=== PATIENT | male | born 1955 | race Caucasian/White ===

== ENCOUNTER 2017-06-20 13:38 | Emergency (ER) | payer BC, MEDICARE ==
[2017-06-20] MEDS ORDERED: Sodium Chloride 0.9% 10 ML Syringe FLUSH PRN (14:08)
[2017-06-20] MEDS ORDERED: Aspirin 81 MG Tab.Chew PO ONE (14:09)
[2017-06-20] MEDS ORDERED: Ondansetron 4 MG/2 ML SDV IV ONE (14:09)
[2017-06-20] MEDS ORDERED: Sodium Chloride 0.9% 1,000 ML IV ONE (14:09)
--- NOTE | 2017-06-20 14:11 | EDM.PDOC ---
ED HPI GENERAL MEDICAL PROBLEM - General Chief Complaint: Chest Pain Stated Complaint: CHEST PAIN Time Seen by Provider: 06/20/17 14:00 Source of Information: Reports: Patient, Family, RN, RN Notes Reviewed History Limitations: Reports: No Limitations - History of Present Illness INITIAL COMMENTS - FREE TEXT/NARRATIVE: Arrives from home by POV with c/o sudden onset of substernal and left upper chest pain with mild shortness of breath, and nausea that began approx. 1 hour ago while pt was shoveling snow. He also states that he feels a little lightheaded, but denies syncope or near syncope. He admits to feeling unusually fatigued this past week. He was seen in clinic this morning for a routine check up for chronic hypertension, and felt fine while at the clinic. Pt states the chest pain radiates to both shoulders and into the neck. He has not taken any aspirin or nitroglycerin today. The triage nurse found pt to have a temperature of 38.7c, BP 160/92, and a heart rate of 108. Onset: Today, Sudden Duration: Constant Location: Reports: Chest Quality: Reports: Ache, Pressure Severity: Severe Improves with: Reports: None Worsens with: Reports: None Context: Reports: Activity Bilateral Upper Chest Pain Score (Numeric/FACES): 9 - Related Data Allergies Allergy/AdvReac Type Severity Reaction Status Date / Time No Known Allergies Allergy Verified 06/20/17 13:56 Home Meds: Home Meds Desvenlafaxine [Pristiq] 200 mg PO DAILY 05/28/14 [History] Cetirizine HCl [Zyrtec] 10 mg PO DAILY PRN 06/20/17 [History] Omeprazole Magnesium [Prilosec Otc] 20 mg PO DAILY 06/20/17 [History] amLODIPine [Norvasc] mg PO DAILY 06/20/17 [History] traZODone 50 mg PO DAILY 06/20/17 [History] Past Medical History Cardiovascular History: Reports: Hypertension Musculoskeletal History: Reports: Other (See Below) Other Musculoskeletal History: chronic pain. chronic fatigue Psychiatric History: Reports: Depression - Past Surgical History HEENT Surgical History: Reports: Other (See Below) Other HEENT Surgeries/Procedures: nasal surgery GI Surgical History: Reports: Appendectomy Musculoskeletal Surgical History: Reports: Other (See Below) Other Musculoskeletal Surgeries/Procedures:: osteotomy, ACL, PCL, carpal tunnel , ulnar nerve release, rib removal Social & Family History - Tobacco Use Smoking Status *Q: Never Smoker - Recreational Drug Use Recreational Drug Use: No - Living Situation & Occupation Living situation: Reports: , with Spouse ED ROS GENERAL - Review of Systems Review Of Systems: ROS reveals no pertinent complaints other than HPI. ED EXAM, GENERAL - Physical Exam Exam: See Below Exam Limited By: No Limitations General Appearance: Alert, WD/WN, No Apparent Distress Eye Exam: Bilateral Eye: Normal Inspection Ears: Normal External Exam, Hearing Grossly Normal Nose: Normal Inspection, Normal Mucosa, No Blood Throat/Mouth: Normal Lips, Normal Teeth, Normal Gums, Normal Oropharynx, Normal Voice, No Airway Compromise, Other (dry oral membranes) Head: Atraumatic, Normocephalic Neck: Normal Inspection, Supple, Non-Tender, Full Range of Motion. No: Lymphadenopathy (L), Lymphadenopathy (R) Respiratory/Chest: No Respiratory Distress, Lungs Clear, Normal Breath Sounds, No Accessory Muscle Use, Chest Non-Tender, Other (occ. mild dry cough) Cardiovascular: Normal Peripheral Pulses, Regular Rate, Rhythm, No Edema, No Gallop, No JVD, No Murmur, No Rub, Tachycardia, Extra Beats (occasional) GI/Abdominal: Normal Bowel Sounds, Soft, Non-Tender, No Distention, No Abnormal Bruit (Male) Exam: Deferred Rectal (Males) Exam: Deferred Back Exam: Normal Inspection, Full Range of Motion. No: CVA Tenderness (L), CVA Tenderness (R) Extremities: Normal Inspection, Normal Range of Motion, Non-Tender, Normal Capillary Refill, No Pedal Edema Neurological: Alert, Oriented, CN II-XII Intact, Normal Cognition, No Motor/ Sensory Deficits Psychiatric: Normal Affect, Normal Mood Skin Exam: Warm, Dry, Intact, Normal Color, No Rash EKG INTERPRETATION EKG Date: 06/20/17 Time: 13:40 Rhythm: Other (Sinus tach) Rate (Beats/Min): 117 [place]: Normal P-Wave: Present QRS: Normal (PVCs) ST-T: Other (Nonspecific T-wave abnormalities in lateral leads) QT: Normal Comparison: NA - No Prior EKG Course - Vital Signs Last Recorded V/S: Last Vital Signs Temp 38.6 C H 06/20/17 14:59 Pulse 104 H 06/20/17 14:44 Resp 14 06/20/17 14:44 BP 145/87 H 06/20/17 14:58 Pulse Ox 96 06/20/17 14:44 - Orders/Labs/Meds Orders: Active Orders 24 hr Category Date Time Status EKG 12 Lead [EKG Documentation Completion] [RC] URGENT Care 06/20/17 13:51 Active Peripheral IV Care [] . DIRECTED Care 06/20/17 14:08 Active CULTURE STREP A CONFIRMATION [] Stat Lab 06/20/17 13:51 Results STREP SCRN A RAPID W CULT CONF [] Stat Lab 06/20/17 13:51 Results Nitroglycerin [Nitrostat] Med 06/20/17 14:53 Active 0.4 mg SL Q5M PRN Sodium Chloride 0.9% [Saline Flush] Med 06/20/17 14:08 Active 10 ml FLUSH ASDIRECTED PRN Peripheral IV Insertion Adult [OM.PC] Stat Oth 06/20/17 14:08 Ordered Medication Orders Nitroglycerin (Nitrostat) 0.4 mg SL Q5M PRN PRN Reason: Chest Pain Last Admin: 06/20/17 14:58 Dose: 0.4 mg Sodium Chloride (Saline Flush) 10 ml FLUSH ASDIRECTED PRN PRN Reason: Keep Vein Open Last Admin: 06/20/17 14:17 Dose: 10 ml Labs: Laboratory Tests 06/20/17 06/20/17 06/20/17 Range/Units 13:50 13:50 13:50 WBC 12.2 H (5.0-10.0) 10^3/uL RBC 5.27 (4.6-6.2) 10^6/uL Hgb 14.7 (14.0-18.0) g/dL Hct 45.9 (40.0-54.0) % MCV 87.1 (80-100) fL MCH 27.9 (27.0-34.0) pg MCHC 32.0 L (33.0-35.0) g/dL Plt Count 163 (150-450) 10^3/uL Neut % (Auto) 56.9 (42.2-75.2) % Lymph % (Auto) 31.4 (20.5-50.1) % [place] % (Auto) 9.1 H (2-8) % Eos % (Auto) 2.3 (1.0-3.0) % Baso % (Auto) 0.3 (0.0-1.0) % Sodium 138 (135-145) mmol/L Potassium 3.4 L (3.6-5.0) mmol/L Chloride 105 (101-111) mmol/L Carbon Dioxide 25.0 (21.0-31.0) mmol/L Anion Gap 11.4 BUN 22 H (7-18) mg/dL Creatinine 1.4 H (0.6-1.3) mg/dL Est Cr Clr Drug Dosing 64.42 mL/min Estimated GFR (MDRD) 52 BUN/Creatinine Ratio 15.71 Glucose 80 (74-105) mg/dL Calcium 9.5 (8.4-10.2) mg/dl Total Bilirubin 0.5 (0.2-1.0) mg/dL AST 47 H (10-42) IU/L ALT 61 H (10-60) IU/L Alkaline Phosphatase 78 (42-121) IU/L Creatine Kinase 396 H (26-174) IU/L Creatine Kinase Index 1.3 (0-2.4) % CK-MB (CK-2) 5.10 H (0.4-4.7) ng/mL Troponin I 0.03 H* (0.00-0.02) ng/ml Total Protein 7.6 (6.7-8.2) g/dl Albumin 4.2 (3.2-5.5) g/dl Globulin 3.4 Albumin/Globulin Ratio 1.24 Meds: Medications Generic Name Dose Route Start Last Admin Trade Name Vincent PRN Reason Stop Dose Admin Nitroglycerin 0.4 mg 06/20/17 14:53 06/20/17 14:58 Nitrostat SL 0.4 mg Q5M PRN Administration Chest Pain Sodium Chloride 10 ml 06/20/17 14:08 06/20/17 14:17 Saline Flush FLUSH 10 ml ASDIRECTED PRN Administration Keep Vein Open Discontinued Medications Generic Name Dose Route Start Last Admin Trade Name Freq PRN Reason Stop Dose Admin Aspirin 324 mg 06/20/17 14:09 06/20/17 14:17 Aspirin PO 06/20/17 14:10 324 mg ONETIME ONE Administration Sodium Chloride 1,000 mls @ 999 mls/hr 06/20/17 14:09 06/20/17 14:16 Normal Saline IV 06/20/17 15:09 999 mls/hr .BOLUS ONE Administration Ondansetron HCl 4 mg 06/20/17 14:09 06/20/17 14:17 Zofran IV 06/20/17 14:10 4 mg ONETIME ONE Administration Oseltamivir Phosphate 75 mg 06/20/17 14:30 06/20/17 14:34 Tamiflu PO 06/20/17 14:31 75 mg ONETIME ONE Administration - Radiology Interpretation Free Text/Narrative:: CXR: no acute process, see Rad. report. Departure - Departure Time of Disposition: 15:30 Disposition: DC/Tfer to [facility] 02 Reason for Transfer *Q: Primary PCI Indicated Condition: Serious Clinical Impression: Acute coronary syndrome, Influenza B Forms: ED Department Discharge, Interfacility Transfer EMTALA - My Orders Last 24 Hours: My Active Orders 06/20/17 13:51 EKG 12 Lead [EKG Documentation Completion] [RC] URGENT CULTURE STREP A CONFIRMATION [RM] Stat STREP SCRN A RAPID W CULT CONF [RM] Stat 06/20/17 14:08 Peripheral IV Care [RC] . DIRECTED Sodium Chloride 0.9% [Saline Flush] 10 ml FLUSH ASDIRECTED PRN Peripheral IV Insertion Adult [OM.PC] Stat 06/20/17 14:53 Nitroglycerin [Nitrostat] 0.4 mg SL Q5M PRN - Assessment/Plan Last 24 Hours: My Active Orders 06/20/17 13:51 EKG 12 Lead [EKG Documentation Completion] [RC] URGENT CULTURE STREP A CONFIRMATION [RM] Stat STREP SCRN A RAPID W CULT CONF [RM] Stat 06/20/17 14:08 Peripheral IV Care [RC] . DIRECTED Sodium Chloride 0.9% [Saline Flush] 10 ml FLUSH ASDIRECTED PRN Peripheral IV Insertion Adult [OM.PC] Stat 06/20/17 14:53 Nitroglycerin [Nitrostat] 0.4 mg SL Q5M PRN
[2017-06-20] MEDS ORDERED: Oseltamivir 75 MG Cap PO ONE (14:30)
--- NOTE | 2017-06-20 14:47 | CR ---
Clinical history: 61-year-old male emergency department with chest pain. Interpretation: Suggestion of some hilar granulomatous nodules. Hypertrophic arthritis dorsal spine. Normal cardiac silhouette without cephalization of flow signs of alveolar edema or dependent pleural fluid accumulation (effusion). No new lung mass, hilar lymphadenopathy or focal lobar pneumonia compared [address] exam[address] (Belen gical clips right axilla) No atelectasis/collapse. No pneumothorax. CONCLUSION: No acute cardiopulmonary abnormality.
[2017-06-20] MEDS ORDERED: Nitroglycerin 0.4 MG Tab.SL SL PRN (14:53)
[2017-06-20 14:58] VITALS: BP 145/87
--- NOTE | 2017-06-22 12:34 | EKG ---
06/20/2017 - ALEM SOTO - FINDINGS: A 12-lead EKG shows normal sinus rhythm with sinus tachycardia. PVCs noted on the 12-lead EKG. No significant ST elevation or ST depression noted. Nonspecific ST-T wave changes noted on the lateral leads. [facility] /[id number]
== END 2017-06-20 16:22 ==
LOC: DL.ED 13:38
DX: I24.9 Acute ischemic heart disease, unspecified (principal); J10.1 Influenza due to other identified influenza virus with other respiratory manifestations; I10 Essential (primary) hypertension; Z79.899 Other long term (current) drug therapy
CPT/HCPCS: 36415; 71045; 80053; 82550; 82553; 84484; 85025; 87081; 87430; 87804; 93005; 96361; 96374; 99285; A9270; J2405; J7030; J7050

== ENCOUNTER 2019-02-18 08:51 | Emergency (ER) | payer MEDICARE, BC ==
--- NOTE | 2019-02-18 09:29 | EDM.PDOC ---
"<Skye Chang - Last Filed: 02/18/19 11:30> ED HPI GENERAL MEDICAL PROBLEM - General Chief Complaint: Neuro Symptoms/Deficits Stated Complaint: LEFT SIDE OF BODY GOING NUMB Time Seen by Provider: 02/18/19 09:00 Source of Information: Reports: Patient, Old Records, RN, RN Notes Reviewed History Limitations: Reports: No Limitations - History of Present Illness INITIAL COMMENTS - FREE TEXT/NARRATIVE: Ja is a 63 year old male presenting with left sided numbness and weakness since around 7am this morning. He had his CPAP on last night and still kept waking up and gasping for air. When symptoms occurred this morning he was not exerting himself. He reports pressure like chest pain, nonradiating, left arm and left leg numbness and weakness, nausea, dizziness, and lightheadedness. Has not had emesis. Denies recent URI or GI symptoms. He was diagnosed with vertigo and has seen PT for head maneuvers which partially helped. Today he has dizziness both when he is still and when moving his head. There is associated SOB. denies slurred speech, facial droop. Denies injury or LOC. Onset: Today - Related Data Allergies Allergy/AdvReac Type Severity Reaction Status Date / Time No Known Allergies Allergy Verified 02/18/19 09:57 Home Meds: Home Meds Desvenlafaxine [Pristiq] 200 mg PO DAILY 05/28/14 [History] Cetirizine HCl [Zyrtec] 10 mg PO BEDTIME 06/20/17 [History] Acetaminophen/Caffeine [Excedrin Tension Headache Cplt] 2 tab PO ASDIRECTED PRN 02/18/19 [History] Albuterol [Proventil HFA] 2 puff INH ASDIRECTED PRN 02/18/19 [History] Ferrous Sulfate 325 mg PO DAILY 02/18/19 [History] Fluticasone Propionate [Flonase] 2 spray NASBOTH BEDTIME 02/18/19 [History] Testosterone Cypionate [Depo-Testosterone] 200 mg IM ASDIRECTED 02/18/19 [ History] Verapamil HCl [Verapamil Sr] 120 mg PO DAILY 02/18/19 [History] Past Medical History Cardiovascular History: Reports: Hypertension Musculoskeletal History: Reports: Other (See Below) Other Musculoskeletal History: chronic pain. chronic fatigue Psychiatric History: Reports: Depression - Past Surgical History HEENT Surgical History: Reports: Other (See Below) Other HEENT Surgeries/Procedures: nasal surgery GI Surgical History: Reports: Appendectomy Musculoskeletal Surgical History: Reports: Other (See Below) Other Musculoskeletal Surgeries/Procedures:: osteotomy, ACL, PCL, carpal tunnel , ulnar nerve release, rib removal Social & Family History - Living Situation & Occupation Living situation: Reports: , with Spouse ED ROS GENERAL - Review of Systems Review Of Systems: See Below Constitutional: Reports: No Symptoms HEENT: Reports: Vertigo Respiratory: Reports: Shortness of Breath Cardiovascular: Reports: Chest Pain Endocrine: Reports: No Symptoms GI/Abdominal: Reports: No Symptoms : Reports: No Symptoms Musculoskeletal: Reports: No Symptoms Skin: Reports: No Symptoms Neurological: Reports: Dizziness, Numbness, Difficulty Walking, Weakness Psychiatric: Reports: No Symptoms Hematologic/Lymphatic: Reports: No Symptoms Immunologic: Reports: No Symptoms ED EXAM, GENERAL - Physical Exam Exam: See Below Exam Limited By: No Limitations General Appearance: Alert, No Apparent Distress Eye Exam: Bilateral Eye: EOMI, PERRL Ears: Normal External Exam Nose: Normal Inspection Throat/Mouth: Normal Inspection, Normal Lips, Normal Oropharynx, Normal Voice, No Airway Compromise Head: Atraumatic, Normocephalic Neck: Other (some neck stiffness on turning left ) Respiratory/Chest: No Respiratory Distress, Lungs Clear, Normal Breath Sounds, No Accessory Muscle Use Cardiovascular: Regular Rate, Rhythm, No Edema GI/Abdominal: Soft, Non-Tender, No Organomegaly, No Distention (Male) Exam: Deferred Rectal (Males) Exam: Deferred Back Exam: Normal Inspection Extremities: No Pedal Edema Neurological: Alert, Oriented, Normal Cognition, Sensory/Motor Deficit (Left arm and leg are weaker than right, and have decreased sensation in comparison to right. ) Skin Exam: Warm, Dry, Normal Color, No Rash Course - Vital Signs Last Recorded V/S: Last Vital Signs Temp 97 F 02/18/19 08:53 Pulse 55 L 02/18/19 08:53 Resp 20 02/18/19 08:53 BP 180/103 H 02/18/19 08:53 Pulse Ox 100 02/18/19 08:53 - Orders/Labs/Meds Orders: Active Orders 24 hr Category Date Time Status EKG 12 Lead [EKG Documentation Completion] [RC] STAT Care 02/18/19 09:05 Active Labs: Laboratory Tests 02/18/19 02/18/19 02/18/19 Range/Units 09:07 09:23 09:23 WBC 13.3 H (5.0-10.0) 10^3/uL RBC 5.17 (4.6-6.2) 10^6/uL Hgb 15.7 (14.0-18.0) g/dL Hct 47.1 (40.0-54.0) % MCV 91.1 D (80-100) fL MCH 30.4 (27.0-34.0) pg MCHC 33.3 (33.0-35.0) g/dL Plt Count 182 (150-450) 10^3/uL Neut % (Auto) 43.2 (42.2-75.2) % Lymph % (Auto) 48.0 (20.5-50.1) % Moody % (Auto) 6.4 (2-8) % Eos % (Auto) 2.2 (1.0-3.0) % Baso % (Auto) 0.2 (0.0-1.0) % Sodium 141 (135-145) mmol/L Potassium 3.6 (3.6-5.0) mmol/L Chloride 107 (101-111) mmol/L Carbon Dioxide 24.0 (21.0-31.0) mmol/L Anion Gap 13.6 BUN 17 (7-18) mg/dL Creatinine 0.7 (0.6-1.3) mg/dL Est Cr Clr Drug Dosing TNP Estimated GFR (MDRD) > 60 BUN/Creatinine Ratio 24.28 Glucose 100 (74-105) mg/dL POC Glucose 116 H (70-105) mg/dl Calcium 9.1 (8.4-10.2) mg/dl Magnesium 1.9 (1.8-2.5) mg/dL Total Bilirubin 0.8 (0.2-1.0) mg/dL AST 38 (10-42) IU/L ALT 53 (10-60) IU/L Alkaline Phosphatase 61 (42-121) IU/L Troponin I < 0.02 (0.00-0.02) ng/ml Total Protein 7.1 (6.7-8.2) g/dl Albumin 4.1 (3.2-5.5) g/dl Globulin 3.0 Albumin/Globulin Ratio 1.37 Urine Color (YELLOW) Urine Appearance (CLEAR) Urine pH (5.0-9.0) Ur Specific [place] (1.005-1.030) Urine Protein (NEGATIVE) Urine Glucose (UA) (NEGATIVE) Urine Ketones (NEGATIVE) Urine Occult Blood (NEGATIVE) Urine Nitrite (NEGATIVE) Urine Bilirubin (NEGATIVE) Urine Urobilinogen (0.2-1.0) mg/dL Ur Leukocyte Esterase (NEGATIVE) Urine RBC /HPF Urine WBC (0-5/HPF) /HPF Ur Epithelial Cells (NOT SEEN) /HPF Urine Bacteria (0-FEW/HPF) /HPF 02/18/19 Range/Units 10:55 WBC (5.0-10.0) 10^3/uL RBC (4.6-6.2) 10^6/uL Hgb (14.0-18.0) g/dL Hct (40.0-54.0) % MCV (80-100) fL MCH (27.0-34.0) pg MCHC (33.0-35.0) g/dL Plt Count (150-450) 10^3/uL Neut % (Auto) (42.2-75.2) % Lymph % (Auto) (20.5-50.1) % Moody % (Auto) (2-8) % Eos % (Auto) (1.0-3.0) % Baso % (Auto) (0.0-1.0) % Sodium (135-145) mmol/L Potassium (3.6-5.0) mmol/L Chloride (101-111) mmol/L Carbon Dioxide (21.0-31.0) mmol/L Anion Gap BUN (7-18) mg/dL Creatinine (0.6-1.3) mg/dL Est Cr Clr Drug Dosing Estimated GFR (MDRD) BUN/Creatinine Ratio Glucose (74-105) mg/dL POC Glucose (70-105) mg/dl Calcium (8.4-10.2) mg/dl Magnesium (1.8-2.5) mg/dL Total Bilirubin (0.2-1.0) mg/dL AST (10-42) IU/L ALT (10-60) IU/L Alkaline Phosphatase (42-121) IU/L Troponin I (0.00-0.02) ng/ml Total Protein (6.7-8.2) g/dl Albumin (3.2-5.5) g/dl Globulin Albumin/Globulin Ratio Urine Color Yellow (YELLOW) Urine Appearance Clear (CLEAR) Urine pH 7.0 (5.0-9.0) Ur Specific [place] 1.015 (1.005-1.030) Urine Protein Negative (NEGATIVE) Urine Glucose (UA) Negative (NEGATIVE) Urine Ketones Negative (NEGATIVE) Urine Occult Blood Trace-intact H (NEGATIVE) Urine Nitrite Negative (NEGATIVE) Urine Bilirubin Negative (NEGATIVE) Urine Urobilinogen 0.2 (0.2-1.0) mg/dL Ur Leukocyte Esterase Negative (NEGATIVE) Urine RBC 0-5 /HPF Urine WBC 0-5 (0-5/HPF) /HPF Ur Epithelial Cells Rare (NOT SEEN) /HPF Urine Bacteria Rare (0-FEW/HPF) /HPF Meds: Medications Discontinued Medications Generic Name Dose Route Start Last Admin Trade Name Freq PRN Reason Stop Dose Admin Aspirin 324 mg 02/18/19 09:49 02/18/19 10:10 Aspirin PO 02/18/19 09:50 324 mg ONETIME ONE Administration Dexamethasone 20 mg 02/18/19 09:56 02/18/19 10:16 Dexamethasone IVPUSH 02/18/19 09:57 20 mg ONETIME ONE Administration Diazepam 5 mg 02/18/19 09:55 02/18/19 10:20 Valium IVPUSH 02/18/19 09:56 5 mg ONETIME ONE Administration Meclizine HCl 25 mg 02/18/19 09:57 02/18/19 10:13 Antivert PO 02/18/19 09:58 25 mg ONETIME ONE Administration - Re-Assessments/Exams Free Text/Narrative Re-Assessment/Exam: 02/18/19 11:[address] Rogel via [facility] call and he accepted the patient. He will be transported by ambulance to [facility]. Patient and his are in agreement. Departure - Departure Time of Disposition: 11:32 Disposition: DC/Tfer to Acute Hospital 02 Condition: Fair, Undetermined Clinical Impression: Vertigo, Numbness, Muscle weakness Chest pain Qualifiers: Chest pain type: unspecified Qualified Code(s): R07.9 - Chest pain, unspecified - Discharge Information Forms: ED Department Discharge, Interfacility Transfer EMTALA - Assessment/Plan Assessment:: Assessment and Plan: Chest pain Left upper and lower extremity weakness and numbness - EKG unremarkable - Troponin pending - Head CT pending - CXR pending - CBC, CMP, Magnesium pending <Airam Brar - Last Filed: 02/18/19 11:41> ED HPI GENERAL MEDICAL PROBLEM - History of Present Illness Duration: Constant Location: Reports: Chest, Upper Extremity, Left, Lower Extremity, Left Quality: Reports: Pressure (chest) Severity: Moderate Improves with: Reports: None Worsens with: Reports: None Associated Symptoms: Reports: No Other Symptoms Past Medical History Cardiovascular History: Reports: CAD Musculoskeletal History: Reports: Fibromyalgia Psychiatric History: Reports: Anxiety, Depression - Past Surgical History Cardiovascular Surgical History: Reports: Other (See Below) (Cardiac Cath. 2017) EKG INTERPRETATION EKG Date: 02/18/19 Time: 09:01 Rhythm: Other (SR) Rate (Beats/Min): 55 [place]: LAD-Left [place] Deviation P-Wave: Present QRS: Normal ST-T: Normal QT: Normal Comparison: No Change Course - Vital Signs Last Recorded V/S: Last Vital Signs Temp 97 F 02/18/19 08:53 Pulse 55 L 02/18/19 08:53 Resp 20 02/18/19 08:53 BP 180/103 H 02/18/19 08:53 Pulse Ox 100 02/18/19 08:53 - Orders/Labs/Meds Meds: Medications Discontinued Medications Generic Name Dose Route Start Last Admin Trade Name Freq PRN Reason Stop Dose Admin Aspirin 324 mg 02/18/19 09:49 02/18/19 10:10 Aspirin PO 02/18/19 09:50 324 mg ONETIME ONE Administration Dexamethasone 20 mg 02/18/19 09:56 02/18/19 10:16 Dexamethasone IVPUSH 02/18/19 09:57 20 mg ONETIME ONE Administration Diazepam 5 mg 02/18/19 09:55 02/18/19 10:20 Valium IVPUSH 02/18/19 09:56 5 mg ONETIME ONE Administration Meclizine HCl 25 mg 02/18/19 09:57 02/18/19 10:13 Antivert PO 02/18/19 09:58 25 mg ONETIME ONE Administration - Radiology Interpretation Free Text/Narrative:: [facility] Final Radiology Report Call: [phone] assistance Online chat: [email or web address] Name: JA SOTO Age: 63Years M Date: 02/18/2019 SSN: -- : 1955 Study: CT HEAD WO Requesting Physician: AIRAM BRAR Images: 171 Addl Studies: Provided Clinical History: Contrast: Without Contrast Medium: Contrast Amount: Contrast Method: Page 1 of 2 PROCEDURE INFORMATION: Exam: CT Head Without Contrast Exam date and time: 02/18/2019 9:36 AM Clinical history: 63 years old, male; Other: Left upper and lower body numbness TECHNIQUE: Imaging protocol: Computed tomography of the head without contrast. Radiation optimization: All CT scans at this facility use at least one of these dose optimization techniques: automated exposure control; mA and/or kV adjustment per patient size (includes targeted exams where dose is matched to clinical indication); or iterative reconstruction. Other technique: STROKE PROTOCOL was implemented. COMPARISON: No relevant prior studies available. FINDINGS: Brain: Normal. No hemorrhage. Unremarkable white matter. No mass effect. Ventricles: Normal. No ventriculomegaly. Bones/joints: Unremarkable. No acute fracture. Sinuses: There is minimal ethmoid and inferior left maxillary sinus disease. Mastoid air cells: Visualized mastoid air cells are well aerated. Soft tissues: Unremarkable. IMPRESSION: No acute intracranial process. ASSESSMENT: ASPECTS ([place] Stroke Program Early CT Score) is 10. Thank you for allowing us to participate in the care of your patient. JA SOTO | Final Radiology Report CONFIDENTIALITY STATEMENT This report is intended only for use by the referring physician, and only in accordance with law. If you received this in error, call [phone]. Page 2 of 2 Dictated and Authenticated by: Didier Ramsey MD 02/18/2019 9:44 AM Central Time ([place] & [place]) [facility] Final Radiology Report Call: [phone] assistance Online chat: [email or web address] Name: JA SOTO Age: 63Years M Date: 02/18/2019 SSN: -- : 1955 Study: XR CHEST 1 VIEW FRONTAL Requesting Physician: AIRAM BRAR Images: 1 Addl Studies: Provided Clinical History: Contrast: Contrast Medium: Contrast Amount: Contrast Method: CONFIDENTIALITY STATEMENT This report is intended only for use by the referring physician, and only in accordance with law. If you received this in error, call [phone]. Page 1 of 1 PROCEDURE INFORMATION: Exam: XR Chest, 1 View Exam date and time: 02/18/2019 9:46 AM Clinical history: 63 years old, male; Chest pain TECHNIQUE: Imaging protocol: XR of the chest Views: 1 view. COMPARISON: CR Chest 1V Frontal 06/20/2017 2:13 PM FINDINGS: Lungs: There is no acute infiltrate or consolidation. Pleural space: Unremarkable. No pleural effusion. No pneumothorax. Heart/Mediastinum: Heart size is within normal limits for technique. Bones/joints: There is absence of the distal right clavicle which could be related to prior surgery, trauma or inflammation. Soft tissues: There are a few vascular clips seen overlying the upper right lateral chest wall, unchanged. IMPRESSION: No acute chest disease. Thank you for allowing us to participate in the care of your patient. Dictated and Authenticated by: Didier Ramsey MD 02/18/2019 9:52 AM Central Time ([place] & [place]) [facility] Final Radiology Report Call: [phone] assistance Online chat: [email or web address] Name: JA SOTO Age: 63Years M Date: 02/18/2019 SSN: -- : 1955 Study: CT HEAD WO Requesting Physician: AIRAM BRAR Images: 171 Addl Studies: Provided Clinical History: Contrast: Without Contrast Medium: Contrast Amount: Contrast Method: Page 1 of 2 PROCEDURE INFORMATION: Exam: CT Head Without Contrast Exam date and time: 02/18/2019 9:36 AM Clinical history: 63 years old, male; Other: Left upper and lower body numbness TECHNIQUE: Imaging protocol: Computed tomography of the head without contrast. Radiation optimization: All CT scans at this facility use at least one of these dose optimization techniques: automated exposure control; mA and/or kV adjustment per patient size (includes targeted exams where dose is matched to clinical indication); or iterative reconstruction. Other technique: STROKE PROTOCOL was implemented. COMPARISON: No relevant prior studies available. FINDINGS: Brain: Normal. No hemorrhage. Unremarkable white matter. No mass effect. Ventricles: Normal. No ventriculomegaly. Bones/joints: Unremarkable. No acute fracture. Sinuses: There is minimal ethmoid and inferior left maxillary sinus disease. Mastoid air cells: Visualized mastoid air cells are well aerated. Soft tissues: Unremarkable. IMPRESSION: No acute intracranial process. ASSESSMENT: ASPECTS ([place] Stroke Program Early CT Score) is 10. Thank you for allowing us to participate in the care of your patient. JA SOTO | Final Radiology Report CONFIDENTIALITY STATEMENT This report is intended only for use by the referring physician, and only in accordance with law. If you received this in error, call [phone]. Page 2 of 2 Dictated and Authenticated by: Didier Ramsey MD 02/18/2019 9:44 AM Central Time ([place] & [place]) - Re-Assessments/Exams Free Text/Narrative Re-Assessment/Exam: 02/18/19 11:37 I saw and evaluated the patient. Discussed with resident and agree with resident s findings and plan as documented in the residents note. Departure - Discharge Information *PRESCRIPTION DRUG MONITORING PROGRAM REVIEWED*: No *COPY OF PRESCRIPTION DRUG MONITORING REPORT IN PATIENT LYNDON: No"
[2019-02-18] MEDS ORDERED: Aspirin 81 MG Tab.Chew PO ONE (09:49)
[2019-02-18 09:52] LABS: ANION GAP 13.6; CHLORIDE,CL 107 mmol/L (101-111); SODIUM,NA 141 mmol/L (135-145)
[2019-02-18] MEDS ORDERED: diazePAM 5 MG/ML MDV IVPUSH ONE (09:55)
[2019-02-18] MEDS ORDERED: Dexamethasone 4 MG/ML SDV IVPUSH ONE (09:56)
[2019-02-18 09:57] VITALS: BP 180/103; PULSE 55
[2019-02-18] MEDS ORDERED: Meclizine 12.5 MG Tab PO ONE (09:57)
== END 2019-02-18 14:25 ==
LOC: DL.ED 08:51
DX: R42 Dizziness and giddiness (principal); R20.0 Anesthesia of skin; M62.81 Muscle weakness (generalized); R07.89 Other chest pain; I10 Essential (primary) hypertension; I25.10 Atherosclerotic heart disease of native coronary artery without angina pectoris; F32.9 Major depressive disorder, single episode, unspecified; Z79.899 Other long term (current) drug therapy
CPT/HCPCS: 36415; 70450; 71045; 80053; 81001; 82962; 83735; 84484; 85025; 93005; 96374; 96375; 99285; A9270; J1100; J3360

== ENCOUNTER 2019-11-27 16:34 | Emergency (ER) | payer MEDICARE, BC ==
[2019-11-27 16:47] VITALS: BP 142/78; PULSE 73
--- NOTE | 2019-11-27 16:54 | EDM.PDOC ---
<DurbinChau Gutiérrez - Last Filed: 11/27/19 18:02> ED HPI GENERAL MEDICAL PROBLEM - General Stated Complaint: STROKE? Time Seen by Provider: 11/27/19 16:40 Source of Information: Reports: Patient History Limitations: Reports: No Limitations - History of Present Illness INITIAL COMMENTS - FREE TEXT/NARRATIVE: This 64 yo male patient reports to the ED with left sided weakness and tingling, a headache and tightness in his throat. The patient reports he was outside working when he suddenly had these symptoms. The patient also reports noticing a metallic taste in his mouth. The patient reports he had similar symptoms about 1 week ago, but these symptoms are worse than previous symptoms. Onset: Today Location: Reports: Face (left side tingling), Neck (left side tightness), Upper Extremity, Left (tingling and weakness), Lower Extremity, Left (tingling and weakness) Quality: Reports: Dull Severity: Moderate Improves with: Reports: None Worsens with: Reports: None Context: Reports: Other Associated Symptoms: Reports: No Other Symptoms - Related Data Allergies Allergy/AdvReac Type Severity Reaction Status Date / Time No Known Allergies Allergy Verified 02/18/19 09:57 Home Meds: Home Meds Desvenlafaxine [Pristiq] 200 mg PO DAILY 05/28/14 [History] Cetirizine HCl [Zyrtec] 10 mg PO BEDTIME 06/20/17 [History] Acetaminophen/Caffeine [Excedrin Tension Headache Cplt] 2 tab PO ASDIRECTED PRN 02/18/19 [History] Albuterol [Proventil HFA] 2 puff INH ASDIRECTED PRN 02/18/19 [History] Ferrous Sulfate 325 mg PO DAILY 02/18/19 [History] Fluticasone Propionate [Flonase] 2 spray NASBOTH BEDTIME 02/18/19 [History] Verapamil HCl [Verapamil Sr] 120 mg PO DAILY 02/18/19 [History] calcium polycarbophiL [Fiber Tabs] 1 tab PO DAILY 11/27/19 [History] lisinopriL [Lisinopril] 20 mg PO DAILY 11/27/19 [History] Past Medical History Cardiovascular History: Reports: CAD Other Cardiovascular History: states he alwasys gets chest pains after surgery, has had 2 angiograms and states they have been "ok" Respiratory History: Reports: Sleep Apnea, Other (See Below) Other Respiratory History: RAD Gastrointestinal History: Reports: GERD Musculoskeletal History: Reports: Fibromyalgia Other Musculoskeletal History: chronic pain. chronic fatigue Neurological History: Reports: Vertigo, Other (See Below) Other Neuro History: small fiber neuropathy Psychiatric History: Reports: Anxiety, Depression Endocrine/Metabolic History: Reports: Other (See Below) Other Endocrine/Metabolic History: Hypogonadism in male - Past Surgical History Cardiovascular Surgical History: Reports: Other (See Below) (Cardiac Cath. 06/2017) Social & Family History - Living Situation & Occupation Living situation: Reports: , with Spouse ED ROS GENERAL - Review of Systems Review Of Systems: Comprehensive ROS is negative, except as noted in HPI. ED EXAM, NEURO - Physical Exam Exam: See Below Exam Limited By: No Limitations General Appearance: Alert, WD/WN, Mild Distress Eye Exam: Bilateral Eye: EOMI, Normal Inspection, PERRL Ears: Normal External Exam, Normal Canal, Hearing Grossly Normal, Normal TMs Nose: Normal Inspection, Normal Mucosa, No Blood Throat/Mouth: Normal Inspection, Normal Lips, Normal Teeth, Normal Gums, Normal Oropharynx, Normal Voice, No Airway Compromise Head Exam: Atraumatic, Normocephalic Neck: Normal Inspection, Supple, Non-Tender, Full Range of Motion Respiratory/Chest: No Respiratory Distress, Lungs Clear, Normal Breath Sounds, No Accessory Muscle Use, Chest Non-Tender Cardiovascular: Normal Peripheral Pulses, Regular Rate, Rhythm, No Edema, No Gallop, No JVD, No Murmur, No Rub GI/Abdominal: Normal Bowel Sounds, Soft, Non-Tender, No Organomegaly, No Distention, No Abnormal Bruit, No Mass (Male) Exam: Deferred Rectal (Males) Exam: Deferred Neurological: Alert, Normal Mood/Affect, Normal Dorsiflexion, CN II-XII Intact, Normal Plantar Flexion, Normal Gait, Normal Reflexes, No Motor/Sensory Deficits, Oriented x 3 Back Exam: Normal Inspection, Full Range of Motion, NT Extremities: Normal Inspection, Normal Range of Motion, Non-Tender, No Pedal Edema, Normal Capillary Refill Psychiatric: Normal Affect, Normal Mood Skin Exam: Warm, Dry, Intact, Normal Color, No Rash Course - Re-Assessments/Exams Free Text/Narrative Re-Assessment/Exam: 11/27/19 18:00 The patient was advised of the CT, x-ray, EKG and lab results. The patient reports he has tingling in all four extremities at this time. The patient was hyperventilating at the time of the reassessment. An order was placed for aspirin and ativan. A repeat EKG and Troponin were ordered. Departure - Departure Disposition: Home, Self-Care 01 Clinical Impression: Chest pain Qualifiers: Chest pain type: unspecified Qualified Code(s): R07.9 - Chest pain, unspecified - Discharge Information Instructions: Nonspecific Chest Pain, Adult, [id number] Referrals: Gerber Villela NP [Primary Care Provider] - Forms: ED Department Discharge Additional Instructions: light activity, advance as tolerated increase fluid intake recheck clinic or Tuesday, sooner if symptoms worsen continue home medications Sepsis Event Note (ED) - Evaluation Sepsis Screening Result: No Definite Risk <Kari Burr - Last Filed: 11/28/19 02:45> Course - Vital Signs Last Recorded V/S: Last Vital Signs Temp 97.1 F 11/27/19 16:45 Pulse 73 11/27/19 16:45 Resp 13 11/27/19 16:45 BP 142/78 H 11/27/19 16:45 Pulse Ox 95 11/27/19 16:45 - Orders/Labs/Meds Orders: Active Orders 24 hr Category Date Time Status EKG Documentation Completion [RC] ROUTINE Care 11/27/19 21:00 Active EKG Documentation Completion [RC] STAT Care 11/27/19 16:45 Active Labs: Laboratory Tests 11/27/19 11/27/19 11/27/19 Range/Units 16:44 17:08 17:08 WBC 20.0 H (5.0-10.0) 10^3/uL RBC 5.24 (4.6-6.2) 10^6/uL Hgb 15.6 (14.0-18.0) g/dL Hct 46.0 (40.0-54.0) % MCV 87.8 D (80-100) fL MCH 29.8 (27.0-34.0) pg MCHC 33.9 (33.0-35.0) g/dL Plt Count 187 (150-450) 10^3/uL Neut % (Auto) 62.1 (42.2-75.2) % Lymph % (Auto) 30.0 (20.5-50.1) % [place] % (Auto) 7.0 (2-8) % Eos % (Auto) 0.7 L (1.0-3.0) % Baso % (Auto) 0.2 (0.0-1.0) % Sodium 140 (136-145) mmol/L Potassium 3.7 (3.5-5.1) mmol/L Chloride 105 (98-107) mmol/L Carbon Dioxide 22 (21-32) mmol/L Anion Gap 16.7 H (7-13) mEq/L BUN 21 H (7-18) mg/dL Creatinine 1.48 H (0.70-1.30) mg/dL Est Cr Clr Drug Dosing 58.63 mL/min Estimated GFR (MDRD) 48 BUN/Creatinine Ratio 14.2 (No establ ref range) Glucose 86 (74-99) mg/dL POC Glucose 74 (70-105) mg/dl Calcium 9.0 (8.5-10.1) mg/dL Total Bilirubin 0.4 (0.2-1.0) mg/dL AST 34 (15-37) U/L ALT 69 H (16-63) U/L Alkaline Phosphatase 81 (46-116) U/L Troponin I 0.036 (0.000-0.056) ng/mL Total Protein 7.4 (6.4-8.2) g/dL Albumin 4.1 (3.4-5.0) g/dL Globulin 3.3 Albumin/Globulin Ratio 1.2 07/14/20 Range/Units 21:00 WBC (5.0-10.0) 10^3/uL RBC (4.6-6.2) 10^6/uL Hgb (14.0-18.0) g/dL Hct (40.0-54.0) % MCV (80-100) fL MCH (27.0-34.0) pg MCHC (33.0-35.0) g/dL Plt Count (150-450) 10^3/uL Neut % (Auto) (42.2-75.2) % Lymph % (Auto) (20.5-50.1) % [place] % (Auto) (2-8) % Eos % (Auto) (1.0-3.0) % Baso % (Auto) (0.0-1.0) % Sodium (136-145) mmol/L Potassium (3.5-5.1) mmol/L Chloride (98-107) mmol/L Carbon Dioxide (21-32) mmol/L Anion Gap (7-13) mEq/L BUN (7-18) mg/dL Creatinine (0.70-1.30) mg/dL Est Cr Clr Drug Dosing mL/min Estimated GFR (MDRD) BUN/Creatinine Ratio (No establ ref range) Glucose (74-99) mg/dL POC Glucose (70-105) mg/dl Calcium (8.5-10.1) mg/dL Total Bilirubin (0.2-1.0) mg/dL AST (15-37) U/L ALT (16-63) U/L Alkaline Phosphatase (46-116) U/L Troponin I 0.030 (0.000-0.056) ng/mL Total Protein (6.4-8.2) g/dL Albumin (3.4-5.0) g/dL Globulin Albumin/Globulin Ratio Meds: Medications Discontinued Medications Generic Name Dose Route Start Last Admin Trade Name Freq PRN Reason Stop Dose Admin Aspirin 324 mg 11/27/19 17:53 11/27/19 17:59 Aspirin PO 11/27/19 17:54 324 mg ONETIME ONE Administration Lorazepam 0.5 mg 11/27/19 17:59 11/27/19 18:03 Ativan PO 11/27/19 18:00 0.5 mg ONETIME ONE Administration Ondansetron HCl 4 mg 11/27/19 17:11 11/27/19 17:28 Zofran IVPUSH 11/27/19 17:12 4 mg ONETIME ONE Administration Departure - Departure Time of Disposition: 21:56 Condition: Good - Discharge Information *PRESCRIPTION DRUG MONITORING PROGRAM REVIEWED*: No *COPY OF PRESCRIPTION DRUG MONITORING REPORT IN PATIENT LYNDON: No Sepsis Event Note (ED) - Focused Exam Vital Signs: Vital Signs Temp Pulse Resp BP Pulse Ox 11/27/19 16:45 97.1 F 73 13 142/78 H 95
[2019-11-27] MEDS ORDERED: Ondansetron 4 MG/2 ML SDV IVPUSH ONE (17:11)
--- NOTE | 2019-11-27 17:11 | CT ---
EXAMINATION: Head wo Cont SEX: Male AGE: 64 years CLINICAL HISTORY: 64-year-old male complaining of dizziness and LEFT SIDED WEAKNESS. Previous CT scan head 18 February 2019 for left upper/lower body numbness reported "no acute intracranial process" ([place] stroke program early CT score 10). No known trauma. Scan technique: Volume acquisition of data emergency unenhanced CT scan of the head and brain obtained with the patient lying supine on the Siemens multislice scanner [place], [place]. All data archived in the PACS system for storage, reformatting axial/sagittal/coronal planes and study (bone/soft tissue windows). Interpretation: 1. Uniformly thick bony calvarium without sign of pathologic skeletal lesion (mild hyperostosis frontalis interna), skull fracture, underlying brain contusion or epidural/subdural hematoma (isolated tiny BB-like calcification posteriorly, midline unchanged). 2. Symmetric clear pneumatization of the paranasal and mastoid sinuses. 3. Subtle microvascular ischemic changes frontal lobes that were evident on previous exam 18 February 2019. No sign of cerebral edema or mass effect on the surrounding sulci. No new areas of focal ischemia/infarct or encephalomalacia. 4. Physiologic midline pineal and symmetric choroid plexus calcifications. No hydrocephalus. 5. No new supratentorial or posterior fossa mass lesion. 6. Ramakrishna cisterna magna variant. Cerebellum and brainstem unremarkable. 7. No sign of acute intracerebral, intraventricular or subarachnoid bleed. CONCLUSION: No new intracranial abnormality since comparison exam (CT head 18 February 2019). No sign of intracranial mass, cerebral edema, hydrocephalus or bleed.
--- NOTE | 2019-11-27 17:13 | CR ---
EXAMINATION: Chest 1V Frontal SEX: Male AGE: 64 years CLINICAL HISTORY: 64-year-old male with left-sided weakness and dizziness. "Negative" emergency CT scan head. Interpretation: No acute new cardiopulmonary abnormality identified in the interval since comparison exam (18 February 2019). 1. Mild left ventricular prominence chronic and unchanged. Left-sided aortic arch. 2. No pulmonary vascular congestion, cephalization of flow, alveolar edema or dependent pleural fluid accumulation. 3. No new lung mass or hilar lymphadenopathy. 4. No focal lobar infiltrate, atelectasis or collapse. 5. No pneumothorax or pneumomediastinum. No free subdiaphragmatic air. 6. Tracheobronchial airway unremarkable.
[2019-11-27 17:35] LABS: ANION GAP 16.7 mEq/L (7-13)
[2019-11-27] MEDS ORDERED: Aspirin 81 MG Tab.Chew PO ONE (17:53)
[2019-11-27] MEDS ORDERED: LORazepam 0.5 MG Tab PO ONE (17:59)
== END 2019-11-27 22:10 | disposition home or self-care (01) ==
LOC: DL.ED 16:34
DX: R07.9 Chest pain, unspecified (principal); I25.10 Atherosclerotic heart disease of native coronary artery without angina pectoris; J45.909 Unspecified asthma, uncomplicated; F41.9 Anxiety disorder, unspecified; F32.9 Major depressive disorder, single episode, unspecified; Z79.899 Other long term (current) drug therapy
CPT/HCPCS: 36415; 70450; 71045; 80053; 82962; 84484; 85025; 93005; 96374; 99284; 99285; A9270; J2405

== ENCOUNTER 2024-08-20 05:26 | Day surgery (SDC) | payer MEDICARE, BC ==
[2024-08-20] MEDS ORDERED: Midazolam 1 MG/ML 2 ML SDV IV ONE (05:44)
[2024-08-20] MEDS ORDERED: fentaNYL 100 MCG/2 ML SDV IV ONE (05:44)
[2024-08-20] MEDS ORDERED: Midazolam 1 MG/ML 2 ML SDV ONE (05:44)
[2024-08-20] MEDS ORDERED: fentaNYL 100 MCG/2 ML SDV ONE (05:44)
[2024-08-20] MEDS: Dextrose 5%-0.45% NaCl 1,000 ML IV SCH (05:51)
[2024-08-20] MEDS: fentaNYL 100 MCG/2 ML SDV IV ONE ×4 (06:32→06:45)
[2024-08-20] MEDS: Midazolam 1 MG/ML 2 ML SDV IV ONE ×6 (06:33→06:39)
[2024-08-20 08:18] VITALS: BP 127/89; PULSE 65
== END 2024-08-20 08:18 | disposition home or self-care (01) ==
LOC: DL.ENDO 05:26
PROVIDERS: ATTEND Internal Medicine Gastroenterology
DX: Z12.11 Encounter for screening for malignant neoplasm of colon (principal); D12.4 Benign neoplasm of descending colon; K62.89 Other specified diseases of anus and rectum
CPT/HCPCS: 88305; J2250; J3010

== ENCOUNTER → 2024-09-21 | Day surgery (SDC) | payer MEDICARE, BC | LOC: DL.ENDO 06:38 | PROVIDERS: ATTEND Internal Medicine Gastroenterology | DX: K31.7 Polyp of stomach and duodenum (principal); K21.9 Gastro-esophageal reflux disease without esophagitis; I10 Essential (primary) hypertension; E78.5 Hyperlipidemia, unspecified; G47.33 Obstructive sleep apnea (adult) (pediatric); Z79.899 Other long term (current) drug therapy | CPT/HCPCS: 88305 ==